=== PATIENT | female | born 1995 | race Caucasian/White ===

== ENCOUNTER 2020-07-02 18:40 | Emergency (ER) | payer OTHER, BC ==
[~2020-07-02] VITALS: Ht 172.7 cm; Wt 100.0 kg
[2020-07-02 19:19] VITALS: BP 132/73
[2020-07-02] MEDS ORDERED: CYCLOBENZAPRINE 10 MG TABLET. PO ONE (20:00)
[2020-07-02] MEDS ORDERED: HYDROcodone/APAP 5/325MG 1 TAB TABLET PO ONE (20:00)
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
[2020-07-02] MEDS ORDERED: CYCL10TA2 PO (20:53)
[2020-07-02] MEDS ORDERED: NAPR-514 PO (20:53)
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
== END 2020-07-02 21:04 | disposition home or self-care (01) ==
LOC: ER 18:40
DX: S13.4XXA Sprain of ligaments of cervical spine, initial encounter (principal); K59.00 Constipation, unspecified; M54.5 Low back pain; M25.552 Pain in left hip; F17.200 Nicotine dependence, unspecified, uncomplicated; Z88.0 Allergy status to penicillin; V89.2XXA Person injured in unspecified motor-vehicle accident, traffic, initial encounter; Y93.89 Activity, other specified; Y92.89 Other specified places as the place of occurrence of the external cause; Y99.8 Other external cause status
CPT/HCPCS: 72125; 72131; 73080; 73502; 81025; 99285